=== PATIENT | female | born 1975 | race Native Hawaiian/Other Pacific Islander ===

== ENCOUNTER 2021-02-14 01:41 | Emergency (ER) | payer OTHER ==
[~2021-02-14] VITALS: Ht 160 cm; Wt 71.7 kg
[2021-02-14 02:01] LABS: PLATELET COUNT 279 K/uL (152-353)
[2021-02-14] MEDS ORDERED: CELEXA10 MG PO (02:02)
[2021-02-14] MEDS ORDERED: TRAM50TA PO (02:04)
[2021-02-14] MEDS ORDERED: TRAZODONE HYDRO50 MG PO (02:05)
[2021-02-14] MEDS ORDERED: TETRABENAZINE25 MG PO (02:06)
[2021-02-14] MEDS ORDERED: LORA0.5T17 PO (02:06)
[2021-02-14 02:10] LABS: POTASSIUM 3.6 mmol/L (3.6-5.2)
[2021-02-14 02:47] VITALS: BP 139/82; TEMP 97.8
[2021-02-14] MEDS ORDERED: AMANTADINE100 MG PO (04:17)
[2021-02-14] MEDS ORDERED: BUSPIRONE5 MG PO (04:18)
[2021-02-14] MEDS ORDERED: DOCU100C10 PO (04:18)
[2021-02-14] MEDS ORDERED: HALO5INJ3 IM (04:20)
[2021-02-14] MEDS ORDERED: HYDROCO/APAP1 TA4 PO (04:21)
[2021-02-14] MEDS ORDERED: MULTI VITAMIN1 TAB PO (04:22)
[2021-02-14] MEDS ORDERED: REMERON SOLTAB15 MG PO (04:23)
[2021-02-14] MEDS ORDERED: TRAMADOL HYDROC50 MG PO (04:24)
== END 2021-02-14 02:47 | disposition other institution (70) ==
LOC: ED 01:41
PROVIDERS: Emergency Medicine Emergency Medical Services
DX: R46.89 Other symptoms and signs involving appearance and behavior (principal); F32.89 Other specified depressive episodes; Z11.52 Encounter for screening for COVID-19; Z04.6 Encounter for general psychiatric examination, requested by authority
CPT/HCPCS: 36415; 80053; 81000; 85027; 87635; 93005; 99283; U0003